=== PATIENT | male | born 1985 | race Caucasian/White ===

== ENCOUNTER 2021-06-17 13:37 | Emergency (ER) | payer SELFPAY ==
[2021-06-17 13:40] VITALS: BP 111/80; PULSE 75; RESP 16; TEMP 36.7; O2SAT 100
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
[2021-06-17] MEDS: Acetaminophen 500 MG TAB 1000 MG PO (15:08)
[2021-06-17 16:06] VITALS: BP 112/70; PULSE 72; RESP 16; TEMP 36.8; O2SAT 99
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
--- NOTE | 2021-06-17 17:28 | NUR.NOTE ---
pt referral to cm. needs to get into ortho in [place], needs a pcp and needs insurance
--- NOTE | 2021-06-17 17:30 | NUR.NOTE ---
see prior note , need pcp, insurance and othro in [place]
== END 2021-06-17 16:07 | disposition home or self-care (01) ==
PROVIDERS: Emergency Provider Physician Assistant
DX: S42.022A Displaced fracture of shaft of left clavicle, initial encounter for closed fracture (principal); V19.9XXA Pedal cyclist (driver) (passenger) injured in unspecified traffic accident, initial encounter; M25.532 Pain in left wrist
CPT/HCPCS: 90471; 99284; 73000; 73110; 99283